=== PATIENT | female | born 1990 | race African-American/Black ===

== ENCOUNTER 2017-07-28 22:01 | Emergency (ER) | payer MEDICAID ==
[~2017-07-28] VITALS: Ht 172.7 cm; Wt 65.8 kg
[2017-07-28 22:15] VITALS: BP 106/68
[2017-07-28] MEDS ORDERED: METRONIDAZOLE500 MG ORAL (22:24)
[2017-07-28] MEDS ORDERED: METROGEL-VAGINA70 G1 VAGIN (22:24)
[2017-07-28 22:29] VITALS: BP 106/68
--- NOTE | 2017-07-28 22:29 | Emergency Room Report ---
History of Present Illness General Chief Complaint: Vaginal Source: Patient Present Illness HPI 27YOF with 3 days vaginal discharge - states similar to previous BV episodes. Denies dysuria, polyuria, abd pain, nausea/vomiting Requesting cream and PO versions of Flagyl Allergies: Coded Allergies: No Known Allergies (Unverified , 07/28/17) Patient History Past Medical History: none Past Surgical History: none Pertinent Family History: none Social History: Denies: smoking, alcohol use, drug use Last Menstrual Period: 2 weeks ago Now: No Reviewed Nursing Documentation: PMH: Agreed; PSxH: Agreed Nursing Documentation-PMH Past Medical History: No History, Except For Hx Asthma: Yes Review of Systems All Other Systems: negative except mentioned in HPI Physical Exam Vital Signs Date Time Temp Pulse Resp B/P (MAP) Pulse Ox O2 Delivery O2 Flow Rate FiO2 07/28/17 22:03 98.0 87 16 106/68 98 Room Air 98.1 Sp02 EP Interpretation: reviewed, normal General Appearance: normal inspection, well appearing, no apparent distress, alert, GCS 15, non-toxic, other - Patient playing on [employer] entire time of HPI, very well appearing Head: normocephalic, atraumatic Eyes: bilateral eye PERRL, bilateral eye EOMI ENT: normal ENT inspection, hearing grossly normal, normal pharynx, no angioedema, normal voice, TMs + canals normal, uvula midline, moist mucus membranes Neck: normal inspection, full range of motion, supple, thyroid normal, no meningismus, no bony tend Respiratory: normal inspection, lungs clear, normal breath sounds, no rhonchi, no respiratory distress, no retraction, no accessory muscle use, no wheezing, speaking full sentences Cardiovascular #1: regular rate, rhythm, no edema, no JVD, normal capillary refill Gastrointestinal: normal inspection, normal bowel sounds, non tender, soft, no mass, no peritonitis, non-distended, no guarding, no hernia, no pulsatile mass Genitourinary: no CVA tenderness Musculoskeletal: normal inspection, back normal, normal range of motion, no calf tenderness, pelvis stable, Lizette's Sign negative Neurologic: normal inspection, alert, oriented x3, responsive, interactive video technician III-XII nml as tested, motor strength/tone normal, cerebellar normal, normal gait, speech normal Psychiatric: normal inspection, judgement/insight normal, mood/affect normal, no suicidal/homicidal ideation, no delusions Skin: normal inspection, normal color, no rash Lymphatic: normal inspection, no adenopathy Medical Decision Making Diagnostic Impression: Primary Impression: Vaginal discharge ER Course VSS, afebrile Patient did not give urine Well, non-septic appearing Will tx empirically based on patient's HPI Provided both cream and oral Flagyl but recommended she only take oral tablets d /t its increased efficacy vs cream however patient adament that she needs both for resolution of symptoms ER course: Patient has remained stable during ED stay. Disposition: Patient is to be discharged to home. Prescriptions given are flagyl Patient is instructed to follow up with their primary care doctor within 5 days. Strict return precautions discussed with patient such as fever, chills, worsening/severe pain, nausea, vomiting, which may indicate severe illness. Patient verbalizes understanding and agrees with plan. Please note that this Emergency Department Report was dictated using [employer] dragline operator technology software, occasionally this can lead to erroneous entry secondary to interpretation by the dictation equipment Last Vital Signs Date Time Temp Pulse Resp B/P (MAP) Pulse Ox O2 Delivery O2 Flow Rate FiO2 07/28/17 22:15 98.0 82 16 106/68 98 Room Air 98.0 Status: improved Disposition: HOME, SELF-CARE Condition: Improved Scripts Metronidazole* (FLAGYL*) 500 Mg Tablet 500 MG ORAL THREE TIMES A DAY for 7 Days, #21 TAB Prov: PATY LANDAVERDE M.D. 07/28/17 Metronidazole* (METROGEL-VAGINAL*) 70 Gm Gel.w.appl 1 APPL VAGIN BEDTIME for 5 Days, #1 UNIT Prov: PATY LANDAVERDE M.D. 07/28/17 Patient Instructions: Bacterial Vaginosis, [id number] PATY LANDAVERDE M.D. Jul 28, 2017 22:29
== END 2017-07-28 22:40 | disposition home or self-care (01) ==
LOC: EMR 22:20
DX: N89.8 Other specified noninflammatory disorders of vagina (principal); J45.909 Unspecified asthma, uncomplicated
CPT/HCPCS: 99284

== ENCOUNTER 2017-09-20 20:51 | Emergency (ER) | payer MEDICAID ==
[~2017-09-20] VITALS: Ht 172.7 cm; Wt 66.7 kg
[~2017-09-20 20:51] MED LIST: METROGEL-VAGINA70 G1 VAGIN; METRONIDAZOLE500 MG ORAL
[2017-09-20 21:00] VITALS: BP 100/64
[2017-09-20] MEDS ORDERED: METRONIDAZOLE500 MG ORAL (21:17)
--- NOTE | 2017-09-20 21:18 | Emergency Room Report ---
History of Present Illness General Chief Complaint: Medication Refill Source: Patient Present Illness HPI This is a 27-year-old female with no past medical history. She is here for prescription from Dr. guzman. She said she get this frequently. She's been with one partner for a long time. She said whenever she have "rough sex" she gets Dr. guzman. She complaining of a discharge that is odorous. No history of STDs. Not . She had this multiple time the past but she is requesting Flagyl. Allergies: Coded Allergies: No Known Allergies (Unverified , 07/28/17) Patient History Past Medical History: see triage record, old chart reviewed Past Surgical History: none Pertinent Family History: none Social History: Denies: smoking Last Menstrual Period: 09/07/2017 Now: No : 0 Para: 0 Immunizations: other Reviewed Nursing Documentation: PMH: Agreed; PSxH: Agreed Nursing Documentation-PMH Past Medical History: No History, Except For Hx Asthma: Yes Review of Systems Eye: Denies: eye pain, blurred vision ENT: Denies: ear pain, nose congestion, throat swelling Respiratory: Denies: cough, shortness of breath Cardiovascular: Denies: chest pain, palpitations Gastrointestinal: Denies: abdominal pain, diarrhea, nausea, vomiting Genitourinary: Reports: discharge Musculoskeletal: Denies: back pain, joint pain Skin: Denies: rash Neurological: Denies: headache, numbness Endocrine: Denies: increased thirst, increased urine Hematologic/Lymphatic: Denies: easy bruising All Other Systems: negative except mentioned in HPI Physical Exam Vital Signs Date Time Temp Pulse Resp B/P (MAP) Pulse Ox O2 Delivery O2 Flow Rate FiO2 09/20/17 20:57 98.2 84 16 96/67 100 Room Air 98.2 vitals normal Sp02 EP Interpretation: reviewed, normal General Appearance: well appearing, no apparent distress, alert Head: normocephalic, atraumatic Eyes: bilateral eye PERRL, bilateral eye EOMI ENT: hearing grossly normal, normal pharynx Neck: full range of motion, supple, no meningismus Respiratory: chest non-tender, lungs clear, normal breath sounds Cardiovascular #1: regular rate, rhythm, no murmur Gastrointestinal: normal bowel sounds, non tender, no mass, no organomegaly, no bruit, non-distended Musculoskeletal: back normal, gait/station normal, normal range of motion Psychiatric: mood/affect normal Skin: warm/dry Medical Decision Making Diagnostic Impression: Primary Impression: Vaginal discharge ER Course Patient here with reported history of bacterial vaginosis with the discharge. She claimed that she is not . She said that Flagyl usually works for her. She does not want to do a pelvic exam. I will prescribe her Flagyl and discharge her. Recommend outpatient testing for HIV, hepatitis, syphilis to name a few other STD. I recommend that she get yearly Pap smear. Last Vital Signs Date Time Temp Pulse Resp B/P (MAP) Pulse Ox O2 Delivery O2 Flow Rate FiO2 09/20/17 20:57 98.2 84 16 96/67 100 Room Air 98.2 Status: unchanged Disposition: HOME, SELF-CARE Condition: Stable Scripts Metronidazole* (FLAGYL*) 500 Mg Tablet 500 MG ORAL BID, #14 TAB Prov: KATLIN BLUNT M.D. 09/20/17 Additional Instructions: Follow-up with your doctor in 7 days. Return if symptoms not improving. Recommend outpatient testing for HIV, hepatitis, syphilis and other STDs. Also recommend yearly Pap smear. If not getting better, you a knee vaginal exam and swab to confirm bacterial vaginosis. KATLIN BLUNT M.D. September 20, 2017 21:18
[2017-09-20 21:47] VITALS: BP 100/64
== END 2017-09-20 22:10 | disposition home or self-care (01) ==
LOC: EMR 22:03
DX: N89.8 Other specified noninflammatory disorders of vagina (principal); Z76.0 Encounter for issue of repeat prescription; J45.909 Unspecified asthma, uncomplicated
CPT/HCPCS: 99283